=== PATIENT | male | born 1990 | race Hispanic/Latino ===

== ENCOUNTER 2017-08-19 11:27 | Emergency (ER) | payer SELFPAY ==
[~2017-08-19] VITALS: Ht 157.5 cm; Wt 65.9 kg
[2017-08-19] MEDS ORDERED: FLEXERIL5 M1 PO (12:06)
[2017-08-19 12:08] VITALS: BP 143/87
== END 2017-08-19 12:10 | disposition home or self-care (01) | DRG 563 ==
LOC: ED 11:27
DX: S46.912A Strain of unspecified muscle, fascia and tendon at shoulder and upper arm level, left arm, initial encounter (principal); X50.0XXA Overexertion from strenuous movement or load, initial encounter; Y93.89 Activity, other specified; Y92.89 Other specified places as the place of occurrence of the external cause; Y99.0 Civilian activity done for income or pay

== ENCOUNTER 2020-07-31 13:55 | Emergency (ER) | payer SELFPAY ==
[~2020-07-31 13:55] MED LIST: FLEXERIL5 M1 PO
[2020-07-31] MEDS ORDERED: VALACYCLOVIR HCL1 GM PO (14:10)
[2020-07-31 14:18] VITALS: BP 163/96
== END 2020-07-31 14:32 | disposition home or self-care (01) | DRG 596 ==
LOC: ED 13:55
DX: B02.9 Zoster without complications (principal)

== ENCOUNTER 2024-05-31 15:58 | Emergency (ER) | payer SELFPAY ==
[~2024-05-31] VITALS: Ht 157.5 cm; Wt 59.0 kg
[~2024-05-31 15:58] MED LIST changes: +VALACYCLOVIR HCL1 GM PO
[2024-05-31 16:22] VITALS: BP 146/79
[2024-05-31 16:30] VITALS: BP 142/83
[2024-05-31 16:45] VITALS: BP 130/79
[2024-05-31 17:00] VITALS: BP 116/71
[2024-05-31 17:15] VITALS: BP 114/72
[2024-05-31 17:31] VITALS: BP 118/83
== END 2024-05-31 18:08 | disposition home or self-care (01) | DRG 607 ==
LOC: ED 15:58
DX: B35.4 Tinea corporis (principal)